=== PATIENT | female | born 1995 | race Caucasian/White ===

== ENCOUNTER 2022-06-30 05:21 | Inpatient (IN) ==
--- NOTE | 2022-06-22 13:09 | Anesthesiology Consultation ---
Date of Service June 22, 2022 Assessment & Plan (1) Encounter for pre-operative examination: Plan - anesthesia concerns: first 04/04/17 at [facility], pt states shortly after baby was delivered "my arms were flailing" and then shortly after lost consciousness. She states when woke up was advised things were stable, event cause/determination is unknown per pt. She notes being told her BP was high in part why emergency was done (review of limited available vitals [id number]-bhlsk hypertensive and hypotensive readings). She experienced headaches several days post- and states was advised if persistence to present for blood patch however headaches resolved. Pt denies any other similar events, involuntary limb movements, any other history of impaired or lost consciousness other than above. Denies any known allergies. Available anesthesia records from [facility] scanned to chart. Case discussed in detail with Dr. Harden who advised there is nothing additional needed prior to presentation at this time from his standpoint for anesthesia. - COVID screening: Per station gateman on 06/22/2022: Travel screen negative, no known COVID-19 positive contacts or current COVID-19 related symptoms in past 2 weeks. To surgeon's discretion if preop COVID testing is needed. Chart Review Chart Review: Acceptable Risk for Surgery and Patient NOT seen in Pre Admission Testing History Surgery Operation Date: 06/30/22 07:30 Proposed Procedures p Section in LD (Delivery of Baby Through Abdominal Incision) - Damari Regalado MD Height/Weight Height: 5 ft 6 in Weight: 80.739 kg Allergies Allergy/AdvReac Type Severity Reaction Status Date / Time No Known Allergies Allergy Verified 06/22/22 12:24 Medications Home Medications Medication Instructions Recorded Confirmed Last Taken prenat.vits,radha,rib-xnpd-robmn 1 tab PO DAILY 01/03/22 06/22/22 Unknown ferrous sulfate 27 mg iron tablet 27 mg PO QAM 06/22/22 06/22/22 Unknown Past Medical History Medical History (Updated 06/22/22 @ 13:49 by Bonny Burciaga PA-C) Anxiety History of anesthesia reaction first 04/04/17 at [facility], pt states shortly after baby was delivered "my arms were flailing" and then shortly after lost consciousness. She states when woke up was advised things were stable, event cause/determination is unknown per pt. She notes being told her BP was high in part why emergency was done (review of limited available vitals obfft-ibgmrdt-tqmgs hypertensive and hypotensive readings). She experienced headaches several days post- and states was advised if persistence to present for blood patch however headaches resolved. Pt denies any other similar events, involuntary limb movements, any other history of impaired or lost consciousness other than above. Denies any known allergies. Past Family History Family History Mother Hypothyroid Grandmother (Maternal) Breast cancer Past Surgical History Surgical History Hx of section S/P tonsillectomy and adenoidectomy S/P wisdom tooth extraction Social History Smoking Status: Never smoker Do You Dip or Chew Tobacco: No Hx Alcohol Use: No Hx Substance Use: No substance use type: does not use
[2022-06-30] MEDS ORDERED: SODIUM CHLORIDE 0.9% 250 ML IV PRN (05:28)
[2022-06-30 05:57] LABS: Basophils # (auto) 0.04 K/uL (0-0.2); Basophils % (auto) 0.6 %; Eosinophils # (auto) 0.07 K/uL (0-0.50); Eosinophils % (auto) 1.1 %; Hematocrit (blood only) 34.9 % (37.0-47.0); Hemoglobin 11.5 g/dl (12.0-16.0); Immature Granulocytes # (auto) 0.05 K/uL (0.01-0.20); Immature Granulocytes % (auto) 0.8 %; Lymphocytes # (auto) 1.99 K/uL (1.2-3.4); Lymphocytes % (auto) 31.3 %; Mean Corpuscular Hemoglobin 28.9 pg (25.0-34.0); Mean Corpuscular Volume 87.7 fL (80.0-100.0); Mean Platelet Volume 11.1 fL (9.4-12.4); Monocytes # (auto) 0.58 K/uL (0.11-0.59); Monocytes % (auto) 9.1 %; Neutrophils # (auto) 3.62 K/uL (1.40-6.50); Neutrophils % (auto) 57.1 %; Platelet Count 184 K/uL (130-400); RDW Coefficient of Variation 16.2 % (11.5-14.5); RDW Standard Deviation 51.4 fL (36.4-46.3); Red Blood Count 3.98 M/uL (4.20-5.40); White Blood Count 6.35 K/ul (4.8-10.8)
[2022-06-30] MEDS ORDERED: ceFAZolin 2,000 MG in SYRINGE 0 ML IV SCH (06:00)
[2022-06-30] MEDS ORDERED: CITRIC ACID/SODIUM CITRATE 15 ML UDC PO SCH (06:00)
[2022-06-30] MEDS ORDERED: LACTATED RINGER'S 1,000 ML IV SCH (06:00)
[2022-06-30] MEDS ORDERED: ONDANSETRON INJ 2 MG/ML 2 ML VIAL ONE (06:56)
[2022-06-30] MEDS ORDERED: KETOROLAC 30 MG/ML VIAL ONE (06:56)
[2022-06-30] MEDS ORDERED: MoRPHine SULFATE PF 1 MG/ML 10 ML AMP/VIAL ONE (06:56)
[2022-06-30] MEDS ORDERED: PHENYLEPHRINE HCL 10 MG/ML VIAL ONE (06:56)
[2022-06-30] MEDS ORDERED: OXYTOCIN 10 UNITS/ML 10ML VIAL ONE ×3 (06:56→06:58)
[2022-06-30] MEDS ORDERED: fentaNYL citrate PF 100 MCG/2 ML VIAL ONE (06:56)
[2022-06-30] MEDS ORDERED: diphenhydrAMINE 50 MG/ML VIAL IV PRN (07:49)
[2022-06-30] MEDS ORDERED: ONDANSETRON INJ 2 MG/ML 2 ML VIAL IV PRN ×2 (07:49→08:16)
[2022-06-30] MEDS ORDERED: MoRPHine SULFATE PF 1 MG/ML 10 ML AMP/VIAL INT SPINAL ONE (07:49)
[2022-06-30] MEDS ORDERED: NALBUPHINE HCL INJ 10 MG/ML AMP IV PRN (07:49)
[2022-06-30] MEDS ORDERED: NALOXONE HCL 0.4 MG/1 ML VIAL/CARP IV PRN (07:49)
[2022-06-30] MEDS ORDERED: ePHEDrine sulfate 50 MG/ML AMP IV PRN (07:49)
[2022-06-30] MEDS ORDERED: NALOXONE HCL 1 MG in SODIUM CHLORIDE 0.9% 1000ML 1,000 ML IV PRN (07:49)
[2022-06-30] MEDS ORDERED: NALOXONE HCL 0.08 MG in SYRINGE 1.8 ML IV PRN (07:49)
[2022-06-30] MEDS ORDERED: PROMETHAZINE HCL 12.5 MG in SODIUM CHLORIDE 0.9% 50 ML IV PRN (07:49)
[2022-06-30] MEDS ORDERED: LACTATED RINGER'S 500 ML IV PRN (07:49)
[2022-06-30] MEDS ORDERED: ACETAMINOPHEN 1,000 MG/100 ML VIAL IV PRN (07:49)
[2022-06-30] MEDS ORDERED: NO NARCOTICS OR SEDATIVES SCH (08:00)
[2022-06-30] MEDS ORDERED: SODIUM CHLORIDE 0.9% 1000ML 1,000 ML IV SCH (08:00)
[2022-06-30] MEDS ORDERED: DC INTRASPINAL MORPHINE SCH (08:00)
[2022-06-30] MEDS ORDERED: KETOROLAC 30 MG/ML VIAL IV PRN (08:16)
[2022-06-30] MEDS ORDERED: MEASLES, MUMPS & RUBELLA VIRUS VIAL SQ ONE (08:16)
[2022-06-30] MEDS ORDERED: BENZOCAINE 20% AER SPR 82.5 GM CAN EXT PRN (08:16)
[2022-06-30] MEDS ORDERED: SENNA 8.6 MG TAB PO PRN (08:16)
[2022-06-30] MEDS ORDERED: MAGNESIUM HYDROXIDE SUSP 30 ML UDC PO PRN (08:16)
[2022-06-30] MEDS ORDERED: HYDROCORTISONE ACETATE 25 MG SUPP PR PRN (08:16)
[2022-06-30] MEDS ORDERED: DIPHTHERIA/TETANUS/PERTUSSIS 0.5mL SYR/VIAL (Age 7+yrs) IM ONE (08:16)
--- NOTE | 2022-06-30 08:39 | Operative Report ---
PG Post Operative Report Pre & Post Diagnosis Operation Date: 06/30/22 07:30 Prior section Desires sterilization I identified the patient and participated in the time-out.: Yes Procedure Operation Date: 06/30/22 07:30 Repeat Low Transverse Section Bilateral Salpingectomy Surgeon Damari Regalado MD Belt Maker Timo Estimated Blood Loss 600 Findings Consistent with Post-Op Diagnosis Specimens Cord blood, Placenta Drains Momin Anesthesia Type Spinal Complications none Disposition Accompanied Patient To Recovery: Yes Disposition: L&D Description of Procedure The patient was placed operating table in the supine position with a leftward tilt. She was prepped and draped in standard sterile fashion. The anesthetic was tested and found to be adequate. A time-out was held, identifying correct patient, procedure, positioning and preoperative antibiotics. There were no concerns. A Pfannenstiel skin incision was made with a knife and taken down to the underlying layer of fascia. The fascia was found to be already open at the midline, and beneath the subcutaneous tissue, peritoneum was immediately encountered. The fascia was identified at least 5cm lateral from the midline on each side, and extended a bit further laterally with scissors. The superior edge of the fascial incision was grasped, elevated and it was noted that the rectus muscles were already retracted far to the sides, and did not require dissection or separation. The peritoneum was entered bluntly. The incision was then stretched. The bladder retractor was placed. The vesicouterine peritoneum was identified, entered with scissors and taken out laterally with scissors. The bladder flap was created digitally. A hysterotomy incision was created transversely in the lower uterine segment, final entry being accomplished in a blunt manner with the vacuum closing machine operator's fingers. Clear amniotic fluid was encountered. The vacuum closing machine operator's hand was used to elevate the head to the hysterotomy. The head was delivered using mild fundal pressure and a Kiwi cup, and the shoulders and body followed without difficulty. The cord was clamped and cut and the was then handed off to the awaiting folder machine adjuster. Cord blood was obtained. The placenta was Manually extracted. The uterus was exteriorized and cleared of all clot and debris with moistened laparotomy sponges. The hysterotomy incision was repaired in two layers, the first in a running locked layer, the second in an imbricating layer. The ovaries and tubes were seen to be normal bilaterally. The tubes were elevated with a Anant clamp and excised using Ligasure handheld device, from fimbriated end to a short stump at the cornua, first on one side and then the other, each tube being handed off for submission to pathology. The uterus was gently replaced in the abdomen, and the gutters were cleared of clot and debris. A final inspection of the hysterotomy revealed good hemostasis. The rectus muscles were allowed to reapproximate naturally. The fascia was then reapproximated with 1 Vicryl in a running nonlocked manner. The fascia was examined and found to be free of defect following closure. The subcutaneous tissue was copiously irrigated and reapproximated with 0-chromic, then the skin edges were closed with 4-0 monocryl in a subcuticular fashion. A dermabond dressing was applied. The momin was found to be draining clear yellow urine at completion of the procedure. I attest to the content of the Intraoperative Record and any orders documented therein. Any exceptions are noted below. I attest to the content of the Intraoperative Record and any orders documented therein. Any exceptions are noted below. OB Procedure Charges [id number] Add on Tubal for C/S
--- NOTE | 2022-06-30 08:48 | Anesthesiology Progress Note ---
Date of Service June 30, 2022 Anesthesia Post Procedure Vital Signs Vital Signs: Temp Pulse Resp BP Pulse Ox 06/30/22 08:42 66 99 06/30/22 08:37 69 98 06/30/22 08:32 78 123/58 L 98 06/30/22 05:53 98.1 F 98 H 18 130/79 Transfer of Care Handoff Completed per policy Notes Mental Status: alert / awake / arousable and participated in evaluation Patient Amnestic to Procedure: No Nausea / Vomiting: adequately controlled Pain: adequately controlled Airway Patency, RR, SpO2: stable & adequate BP & HR: stable & adequate Hydration State: stable & adequate Neuraxial Anesthesia: was administered and sensory block is resolving Anesthetic Complications: no major complications apparent and Pt Satisfied with anesthetic care
[2022-06-30] MEDS: HYDROmorphone INJ 0.5 MG/0.5 ML SYR IV PRN ×2 (10:34→17:03)
[2022-06-30] MEDS: OXYTOCIN 20 UNITS in LACTATED RINGER'S 1,000 ML IV SCH ×2 (11:00→19:23)
[2022-06-30] MEDS: KETOROLAC 30 MG/ML VIAL IV PRN ×2 (15:50→23:18)
[2022-06-30] MEDS: SIMETHICONE 80 MG CHEW PO SCH ×3 (18:22→21:03)
[2022-06-30] MEDS: DOCUSATE SODIUM 100 MG CAP PO SCH (21:03)
[2022-07-01] MEDS ORDERED: diphenhydrAMINE 50 MG/ML VIAL IV PRN (01:50)
[2022-07-01] MEDS ORDERED: PROMETHAZINE HCL 25 MG in SODIUM CHLORIDE 0.9% 50 ML IV PRN (01:50)
[2022-07-01] MEDS ORDERED: MEPERIDINE HCL 50 MG/ML CARP IV PRN (01:50)
[2022-07-01] MEDS ORDERED: KETOROLAC 30 MG/ML VIAL IV PRN (01:50)
[2022-07-01] MEDS ORDERED: diphenhydrAMINE Capsule 25 MG CAP PO PRN (01:50)
[2022-07-01] MEDS: oxyCODONE/ACETAMINOPHEN 5mg/325mg TAB PO PRN ×4 (02:07→22:45)
--- NOTE | 2022-07-01 05:31 | Obstetrical Progress Note ---
Date of Service <Maylin GuamanDO - Last Filed: 07/01/22 06:34> July 01, 2022 Assessment & Plan <Maylin GuamanDO - Last Filed: 07/01/22 06:34> (1) Status post section: continue OOB, ambulation, diet as tolerated <Lucy Hammond MD - Last Filed: 07/01/22 07:37> (1) Status post section: Subjective <Maylin GuamanDO - Last Filed: 07/01/22 06:34> Dulce Maria is a 27 y/o female who is POD #1 following delivery at 39 1/7 weeks. She reports feeling well overall this morning. Mild abdominal cramping, pain well managed on analgesics. Voiding. Tolerating meals overnight and able to ambulate some. Is passing gas, no bowel movement. Has some persistent lochia with some improvement this morning. Currently breast feeding. Review of Systems Denies fever, chills, sweats Denies shortness of breath, difficulty breathing, chest pain, palpitations, chest pressure. Denies breast pain. Denies dysuria. Denies headache or changes in vision. Physical Exam <Maylinjavier GuamanDO - Last Filed: 07/01/22 06:34> General: Alert, oriented. No acute distress. Cardiac: Regular rate and rhythm, no murmurs/rubs/gallops. Respiratory: Clear to auscultation bilaterally a/p, no wheezes/rales/rhonchi. No increased work of breathing. Symmetrical chest rise. No respiratory distress. Abdomen: Soft, nontender, nondistended. Uterus: Uterine fundus firm, palpable 2 cm below umbilicus. Surgical scar clean and healing well. Lower Extremities: No lower extremity edema or swelling. No deep calf pain. Results & Data <Maylin SEusebio DenizDO - Last Filed: 07/01/22 06:34> Vital Signs (Past 12 Hours) Vital Signs Temp Pulse Resp BP Pulse Ox O2 Del Method 07/01/22 02:59 36.8 C 72 18 114/75 99 Room Air 07/01/22 00:30 18 96 07/01/22 01:18 16 95 06/30/22 23:10 18 99 06/30/22 23:22 36.8 C 70 18 115/75 97 Room Air 06/30/22 21:15 16 97 06/30/22 22:35 18 98 06/30/22 19:30 16 99 06/30/22 19:30 Room Air 06/30/22 18:40 16 96 06/30/22 19:10 36.9 C 78 18 113/71 95 Room Air <Lucy Hammond MD - Last Filed: 07/01/22 07:37> Co-Signing Physician Notes Resident Physician Supervision Note: I interviewed and examined the patient. Discussed with Dr. Guaman and agree with findings and plan as documented in the note. Any exceptions or clarifications are listed here: POD1 s/p rLTCS doing well. VSS, exam benign and wnl. Incision c/d/i. Continue rout pp care Documented By: Lucy Hammond MD Resident Activity Tracking <Maylin Guaman DO - Last Filed: 07/01/22 06:34> Resident Involvement: Resident Care Provided Care Provided: OB Delivery (post )
[2022-07-01 07:05] LABS: Basophils # (auto) 0.04 K/uL (0-0.2); Basophils % (auto) 0.5 %; Eosinophils # (auto) 0.16 K/uL (0-0.50); Eosinophils % (auto) 1.8 %; Hemoglobin 10.6 g/dl (12.0-16.0); Immature Granulocytes # (auto) 0.05 K/uL (0.01-0.20); Immature Granulocytes % (auto) 0.6 %; Lymphocytes # (auto) 1.48 K/uL (1.2-3.4); Mean Corpuscular Hemoglobin 29.4 pg (25.0-34.0); Mean Corpuscular Hgb Conc 33.1 g/dL (32.0-36.0); Mean Corpuscular Volume 88.9 fL (80.0-100.0); Mean Platelet Volume 11.3 fL (9.4-12.4); Monocytes # (auto) 0.51 K/uL (0.11-0.59); Monocytes % (auto) 5.9 %; Neutrophils # (auto) 6.47 K/uL (1.40-6.50); Neutrophils % (auto) 74.2 %; Platelet Count 143 K/uL (130-400); RDW Coefficient of Variation 15.8 % (11.5-14.5); RDW Standard Deviation 50.7 fL (36.4-46.3); White Blood Count 8.71 K/ul (4.8-10.8)
[2022-07-01] MEDS: SIMETHICONE 80 MG CHEW PO SCH ×4 (08:47→20:54)
[2022-07-01] MEDS: FERROUS SULFATE 325 MG TAB PO SCH (08:48)
[2022-07-01] MEDS: IBUPROFEN 600 MG TAB PO PRN ×3 (08:48→22:44)
[2022-07-01] MEDS: DOCUSATE SODIUM 100 MG CAP PO SCH ×2 (08:48→20:54)
[2022-07-01] MEDS: PRENATAL VITAMIN 1 TAB PO SCH (08:48)
[2022-07-01] MEDS ORDERED: bisacodyL 5 MG TABEC PO SCH (20:00)
[2022-07-02] MEDS: oxyCODONE/ACETAMINOPHEN 5mg/325mg TAB PO PRN ×3 (00:04→08:04)
[2022-07-02] MEDS: IBUPROFEN 600 MG TAB PO PRN ×2 (04:28→08:04)
[2022-07-02 06:40] LABS: Hematocrit (blood only) 33.1 % (37.0-47.0); Hemoglobin 10.7 g/dl (12.0-16.0)
[2022-07-02] MEDS ORDERED: SERTRALINE HCL 50 MG TABLET PO ONE (07:08)
--- NOTE | 2022-07-02 07:10 | Obstetrical Progress Note ---
Date of Service July 02, 2022 Assessment & Plan (1) Status post section: Ready to go home, D/C instructions reviewed. (2) History of depression: Patient with history of PPD and at risk for recurrence, accepting of prophylactic zoloft. Start 25mg daily and increase to 50mg daily QHS after 2 weeks. 2wk incision/mood check offered and accepted. Subjective Ambulation: ambulating normally Voiding: no voiding problems Passing Gas:: Yes Diet Tolerance:: regular diet Lochia:: Small Feeding Type:: breast feeding Physical Exam Constitutional WD/WN, vitals as above Eyes PERRL, conjunctivae normal, anicteric sclerae Neck normal visual inspection Respiratory normal respiratory effort and able to speak in complete sentences; no respiratory distress and no labored breathing Cardiovascular Rate/Rhythm: regular rate and regular rhythm Extremities: no edema Chest (Breasts) Chest: normal inspection of chest Gastrointestinal (Abdomen) Inspection/Auscultation: abdomen normal to inspection Soft, postgravid Psychiatric A+Ox3, euthymic affect Genitourinary OB Exam Abdomen: + fundal height Fundus: + firm and + relation to umbilicus (fundus just below umbilicus); not tender Results & Data Vital Signs (Past 12 Hours) Vital Signs Temp Pulse Resp BP Pulse Ox O2 Del Method 07/01/22 23:27 98.8 F 73 18 120/76 98 Room Air 07/01/22 19:45 98.4 F 84 18 134/84
[2022-07-02] MEDS: SIMETHICONE 80 MG CHEW PO SCH (07:45)
[2022-07-02] MEDS: PRENATAL VITAMIN 1 TAB PO SCH (07:45)
[2022-07-02] MEDS: FERROUS SULFATE 325 MG TAB PO SCH (07:45)
[2022-07-02] MEDS: DOCUSATE SODIUM 100 MG CAP PO SCH (07:45)
[2022-07-02] MEDS ORDERED: bisacodyL 10 MG SUPP PR PRN (08:16)
--- NOTE | 2022-07-05 07:51 | Discharge Summary ---
Date of Service July 05, 2022 Discharge Data Consultations 06/30/22 05:27 Consult Anesthesiology Stat Procedures Performed Operation Date: 06/30/22 07:30 Actual Procedures p Section in LD for live female child at 0753 followed by bilateral tubal ligation. - Damari Regalado MD Hospital Course (1) History of depression: Discharged after planned section, with routine postop pain medication and 6 week visit. Also due to prior depression, started zoloft and offered 2 week mood check visit, which patient accepted. Coding Level of Care Code None Diagnoses History of depression Z87.59; Z86.59
== END 2022-07-02 14:15 | disposition home or self-care (01) | DRG 785 ==
LOC: 4S1 05:21 → EDSTATUS 09:00 → 4E2 12:12